=== PATIENT | female | born 1970 ===

== ENCOUNTER 2024-10-02 05:35 | Day surgery (SDC) | payer OTHER ==
[2024-09-28 14:10] VITALS: BP 152/80
[~2024-10-02] VITALS: Ht 160 cm; Wt 102.1 kg
[~2024-10-02 05:35] MED LIST: COZAAR25 MG PO; LIPITOR20 MG PO
[2024-10-02] MEDS ORDERED: CEFAZOLIN SODIUM 1,000 MG VIAL IV ONE (08:30)
[2024-10-02] MEDS ORDERED: MEPERIDINE HCL 25 MG/ML AMPUL IV ONE (09:30)
== END 2024-10-02 11:25 | disposition home or self-care (01) ==
LOC: CIR.AMB 05:35
PROVIDERS: ATTEND Surgery
DX: K80.10 Calculus of gallbladder with chronic cholecystitis without obstruction (principal); Z88.1 Allergy status to other antibiotic agents; Z91.02 Food additives allergy status; I10 Essential (primary) hypertension; E78.5 Hyperlipidemia, unspecified; H52.10 Myopia, unspecified eye